=== PATIENT | female | born 1950 | race Caucasian/White ===

== ENCOUNTER 2019-05-02 03:58 | Inpatient (IN) ==
[2019-05-02] MEDS ORDERED: PEPCID ONE (09:29)
[2019-05-02] MEDS ORDERED: COLACE ONE (09:29)
[2019-05-02] MEDS ORDERED: REGLAN ONE (09:29)
[2019-05-02] MEDS ORDERED: KEFZOL 1 GM/D5W 2 GM/100 ML IVPB ONE (09:30)
[2019-05-02] MEDS ORDERED: LYRICA ONE (09:30)
[2019-05-02] MEDS ORDERED: LR 1,000 ML ONE (09:30)
[2019-05-02] MEDS ORDERED: CELEBREX ONE (09:30)
--- NOTE | 2019-05-02 09:47 | EKG Report ---
Test Performed on : 05/02/2019 09:22:21 AM Test Reason : Preop Blood Pressure : / mmHG Vent. Rate : 088 BPM Atrial Rate : 088 BPM P-R Int : 158 ms QRS Dur : 078 ms QT Int : 368 ms P-R-T Axes : 053 046 067 degrees QTc Int : 445 ms Normal sinus rhythm. Normal ECG No previous ECGs available Confirmed by Ericka GOEL, Osvaldo Perez ([id number]) on 05/04/2019 9:43:03 PM
[2019-05-02 09:58] LABS: BASO# 0.02 X1000 (0.0-0.2); BASO% 0.2 % (0.0-0.8); EOS# 0.09 X1000 (0.0-0.7); EOS% 0.9 % (0.0-10.0); HEMATOCRIT 33.7 % (37.0-47.0); HEMOGLOBIN 10.5 g/dL (12.0-16.0); IMM GRAN# 0.02 X1000 (0.0-0.04); IMM GRAN% 0.2 % (0.0-0.5); LYMPH# 1.05 X1000 (1.2-3.4); LYMPH% 10.1 % (20.5-51.1); MCH 30.3 PG (27-31); MCHC 31.2 g/dL (33-37); MCV 97.1 FL (81-99); MONO# 0.84 X1000 (0.11-0.59); MONO% 8.1 % (1.7-9.3); NEUT# 8.39 X1000 (1.4-6.5); NEUT% 80.5 % (42.2-75.2); PLT 255 X1000 (130-400); RBC 3.47 XMIL (4.2-5.4); RDW 12.4 % (11.5-14.5); WBC 10.41 X1000 (4.8-10.8)
[2019-05-02 10:17] LABS: AGAP 9; BUN 25 mg/dL (8-22); CALCIUM 8.4 mg/dL (8.8-10.2); CHLORIDE 99 mmol/L (98-107); COSMO 282; CREATININE 0.8 mg/dL (0.5-0.9); ESTIMATED GFR > 60; GLUCOSE 129 mg/dL (70-104); SODIUM 138 mmol/L (136-145); TCO2 30 mmol/L (25-35)
[2019-05-02 10:27] LABS: INR 1.11; PROTIME 14.4 Seconds (11.0-16.0); PTT 27.3 Seconds (22.3-41.8)
[2019-05-02] MEDS ORDERED: ZOFRAN ONE (10:31)
[2019-05-02] MEDS ORDERED: XYLOCAINE-MPF 2% ONE ×2 (10:31→16:12)
[2019-05-02] MEDS ORDERED: DECADRON ONE (10:31)
[2019-05-02] MEDS ORDERED: ROBINUL ONE ×2 (10:31→13:25)
[2019-05-02] MEDS ORDERED: DIPRIVAN 1% ONE (10:31)
[2019-05-02] MEDS ORDERED: FENTANYL ONE (10:34)
[2019-05-02] MEDS ORDERED: SENSORCAINE 0.25%/EPI 1:200,000 ONE ×3 (11:46→16:13)
[2019-05-02] MEDS ORDERED: TORADOL ONE (11:46)
[2019-05-02] MEDS ORDERED: SODIUM CHLORIDE 0.9% ONE (11:46)
[2019-05-02] MEDS ORDERED: DURAMORPH ONE (11:46)
[2019-05-02] MEDS ORDERED: EXPAREL 1.3% ONE (11:47)
[2019-05-02 12:22] LABS: ALLEN TEST YES; BE 6.1 mmoll (-3.0-3.0); BLOOD TYPE ARTERIAL; HCO3-(ACT) 29.5 mmoll (20.0-26.0); METHB 1.1 % (0.0-1.5); O2(CT) 13.1 mL/dL (15.0-23.0); PCO2(98.6) 50 mmHg (35-45); PO2(98.6) 52 mmHg (60-100); SAMPLE BLOOD; SAO2 91.4 % (95.0-100.0); THB 10.6 g/dL (11.5-17.4); pH(98.6) 7.41 (7.35-7.45)
[2019-05-02 12:23] LABS: MODALITY ROOM AIR; O2HB 87.6 % (95.0-99.0)
[2019-05-02] MEDS ORDERED: KETAMINE ONE (12:46)
[2019-05-02] MEDS ORDERED: OFIRMEV 1000 MG/ISOTONIC SOLN 1,000 MG/100 ML BOTTLE ONE (12:59)
[2019-05-02] MEDS ORDERED: ALBUMIN 25% ONE (14:09)
[2019-05-02] MEDS ORDERED: VANCOMYCIN ONE (14:18)
[2019-05-02] MEDS ORDERED: SODIUM CHLORIDE 0.9% 10 ML ONE (15:36)
[2019-05-02] MEDS ORDERED: EPHEDRINE ONE (15:36)
[2019-05-02] MEDS ORDERED: NORCO-10 PO PRN (16:24)
[2019-05-02] MEDS ORDERED: OXY IR PO PRN ×2 (16:27)
[2019-05-02] MEDS ORDERED: ZOFRAN PO PRN (16:27)
[2019-05-02] MEDS ORDERED: ZOFRAN IV PRN (16:27)
[2019-05-02] MEDS ORDERED: MARCAINE 0.25% PF ONE (16:44)
--- NOTE | 2019-05-02 17:18 | Diag Imaging Result Doc PS360 ---
EXAM: SHOULDER-LEFT - 05/02/2019 HISTORY: Post-Op TECHNIQUE: Portable AP left shoulder one view COMPARISON: 04/28/2019 FINDINGS: There are postsurgical changes of interval left total shoulder prosthesis placement. Alignment appears satisfactory. There are no complicating features identified. There is apparent elevation of left hemidiaphragm noted similar to prior. IMPRESSION: Satisfactory postoperative exam. Electronically signed by Franklyn Chatman 05/02/2019 5:15 PM
[2019-05-02] MEDS ORDERED: NS 1,000 ML ONE (17:34)
[2019-05-02 17:36] LABS: URINE SOURCE CATH
[2019-05-02 17:43] LABS: BILIRUBIN URINE NEGATIVE (NEGATIVE); BLOOD URINE NEGATIVE (NEGATIVE); COLOR YELLOW; GLUCOSE URINE NEGATIVE (NEGATIVE); KETONE URINE TRACE mg/dL (NEGATIVE); LEUKOCYTES URINE LARGE (NEGATIVE); NITRITE URINE NEGATIVE (NEGATIVE); PROTEIN URINE 30 mg/dL (NEGATIVE); SP GRAVITY URINE 1.031; TURBIDITY URINE CLEAR (CLEAR); UROBILINOGEN URINE NORMAL (NORMAL)
[2019-05-02 17:45] LABS: UR EPITHELIAL CELLS <10 /HPF (<10); URINE BACTERIA NEGATIVE /HPF; URINE RBC <10 /HPF (<10); URINE WBC 20-40 /HPF (<10)
--- NOTE | 2019-05-02 18:15 | CONSULTATION ---
DATE OF CONSULTATION: 05/02/2019 HISTORY OF PRESENT ILLNESS: Ms. Cifuentes apparently has a history of gastroesophageal reflux, history of asthma, status post hysterectomy, had a mole removed from her face. She was here for surgery, a left shoulder total surgery apparently and right lower leg fracture. PAST MEDICAL HISTORY: There is not much in the records. ALLERGIES: She has no known drug allergies. HOME MEDICATION: Losartan 50 mg a day, Prilosec 20 mg a day, oxycodone 7.5/325 one q.4-6 hours. IMAGING: I see where she had a left humerus x-ray done on 04/28, badly displaced, badly comminuted humeral head fracture. Every major part of the humeral head is fractured. Distal shaft was intact. Knee x-ray: Displaced transverse patella fracture on the right. OBJECTIVE: General: This is postop. She is still lethargic. Vital signs: She remains afebrile, temperature 97.6 degrees, pulse 96, respirations 12, blood pressure 135/69. Height 5 feet 3 inches. O2 saturation was 96%. HEENT: Pupils are equal and round. Lungs: Clear in all lung alarcon, anterolateral. Cardiovascular: Regular rhythm and rate without murmur or S3. Abdomen: Soft. Skin: Warm and dry. Neck: No distended neck veins. Extremities: No pedal edema. Right knee bandaged and elevated. Left shoulder also bandaged. ASSESSMENT AND PLAN: Left shoulder surgery and right patella. She appears to be stable. Electrolytes and fluid volume appear to be stable. We will watch her blood count. When she is able to give more history may be able to get more expanded past medical history. cc: Toy Lopez MD
[2019-05-02] MEDS: MORPHINE IV PRN ×2 (18:22→20:34)
[2019-05-02] MEDS: LOVENOX SUBQ SCH (18:24)
[2019-05-02] MEDS: TYLENOL PO SCH ×2 (18:24→22:47)
[2019-05-02] MEDS: KEFZOL 2 GM/D5W 2 GM/50 ML IVPB IV SCH (18:28)
[2019-05-02] MEDS: NS 1,000 ML IV SCH (19:52)
[2019-05-02] MEDS: PERIDEX MT SCH (20:22)
[2019-05-02] MEDS: CELEBREX PO SCH (20:22)
[2019-05-02] MEDS: COLACE PO SCH (20:22)
[2019-05-02] MEDS ORDERED: COLACE PO SCH (21:00)
[2019-05-03] MEDS: KEFZOL 2 GM/D5W 2 GM/50 ML IVPB IV SCH (02:10)
[2019-05-03] MEDS: TYLENOL PO SCH ×4 (04:35→22:58)
[2019-05-03] MEDS: PRILOSEC PO SCH (06:26)
[2019-05-03] MEDS ORDERED: QUELICIN (DOSE) ONE (06:36)
[2019-05-03 06:50] LABS: AGAP 9; BUN 19 mg/dL (8-22); CALCIUM 7.7 mg/dL (8.8-10.2); CHLORIDE 101 mmol/L (98-107); COSMO 282; CREATININE 0.7 mg/dL (0.5-0.9); ESTIMATED GFR > 60; GLUCOSE 133 mg/dL (70-104); POTASSIUM 4.9 mmol/L (3.5-5.1); SODIUM 139 mmol/L (136-145); TCO2 29 mmol/L (25-35)
[2019-05-03 06:56] LABS: HEMATOCRIT 27.7 % (37.0-47.0); HEMOGLOBIN 8.2 g/dL (12.0-16.0)
[2019-05-03] MEDS ORDERED: ZEMURON ONE (07:31)
--- NOTE | 2019-05-03 08:10 | ORTHOPAEDICS PROGRESS NOTE ---
DATE: 05/02/2019 This is a postop note. SUBJECTIVE: The patient is seen in the room following surgery. She is doing well. She is reporting pain more in her right knee. States her left shoulder feels pretty good. She ate a little bit of her food, but does not have much of an appetite. No nausea or vomiting. OBJECTIVE: Examination of the left upper extremity reveals a KENNY drain in place with minimal output. Surgical dressing is clean, dry, intact. Minimal swelling around the shoulder. Motor is intact to AIN, PIN, and ulnar nerve distribution. Her posterior deltoid does fire indicating axillary nerve is working. Sensation intact to light touch to median, radial, ulnar, axillary nerves. Radial pulse is palpable and equal bilaterally. Examination of right lower extremity reveals surgical dressing is clean, dry, intact. Knee immobilizer is in place. Thigh and calf were soft and compressible. Motor intact EHL, tibialis anterior, gastrocsoleus complex. Sensation intact to light touch L3-S1. Dorsalis pedis pulse palpable and equal bilaterally. IMAGING: Portable AP view of the left shoulder was reviewed demonstrating good positioning of implants with glenohumeral joint being reduced. ASSESSMENT: A 69-year-old female status post left reverse shoulder arthroplasty and right open reduction and internal fixation of patella fracture. PLAN: 1. Patient will be weightbearing as tolerated on the right lower extremity with her knee immobilizer in place. She is to be nonweightbearing on her left upper extremity. 2. She is to keep her sling intact at all times. While lying in bed, she should have a bump placed behind the elbow. 3. Physical therapy to mobilize in the morning. 4. Ice p.r.n. to the left shoulder and right knee. 5. Ancef x24 hours. 6. Lovenox DVT prophylaxis will start in the morning. 7. Appreciate hospitalist recommendations. 8. Disposition: Pending PT mobilization. Patient will likely be discharged home or to a nursing home facility or inpatient rehab facility on postoperative day 1 or 2. cc: Gianluca Barreto MD
[2019-05-03] MEDS: NS 1,000 ML IV SCH ×2 (08:30→22:57)
--- NOTE | 2019-05-03 08:45 | OPERATIVE NOTE ---
PROCEDURE DATE: 05/02/2019 PREOPERATIVE DIAGNOSES: 1. Left 4-part proximal humerus fracture. 2. Right transverse patella fracture. POSTOPERATIVE DIAGNOSES: 1. Left 4-part proximal humerus fracture. 2. Right transverse patella fracture. PROCEDURE: 1. Left reverse shoulder arthroplasty. 2. Open reduction and internal fixation of right patella fracture. 3. Left biceps tenodesis. SURGEON: Florentin Acosta MD. MACHINE CEMENTER AND FOLDER: BRYSON Baxter whose assistance was necessary for fracture reduction, retraction, and placement of implants. ANESTHESIA: General endotracheal anesthesia. COMPLICATIONS: None. SPECIMENS: None. BLOOD LOSS: 200 mL. DRAINS: One Hemovac drain placed in the left shoulder. IMPLANTS: 1. Exactech Equinoxe reverse shoulder arthroplasty system with a 38 mm glenoid base plate and 38 mm Glenosphere. 2. Exactech Equinoxe humeral fracture stem, left 8.5 mm cemented. 3. A 38 mm Equinoxe humeral liner with a +0 standard liner. 1. Synthes 4-0 cannulated screws x2 with 18-gauge wires for tension band. INDICATIONS FOR PROCEDURE: Ms. Cifuentes is a 69-year-old female who presented to clinic after same- level fall sustaining the above injuries. Given the significant comminution and displacement of her 4-part proximal humerus fracture, the decision was made to proceed with reverse total shoulder arthroplasty. She had a transverse displaced patella fracture as well on the contralateral right knee and we thus proceeded with open reduction and internal fixation of this as well. Risks, benefits, alternative therapies were discussed with the patient regarding surgery. Risks of surgery include, but not limited to, risks of bleeding, infection, damage to nerves and vessels around the area, continued pain following surgery, nonunion, malunion, dislocation, need for revision surgery. Also risks of anesthesia including blood clot, stroke, heart attack, even . Patient understands these risks. All questions were answered. Informed consent was obtained. PROCEDURE IN DETAIL: Ms. Cifuentes was identified by wrist band and greeted in preop holding area on 05/02/2019. Her left upper extremity and right lower extremity were marked in indelible ink per [facility] side and cite protocol. Following this, the patient was transferred back to the operating room for surgery. Upon entering the OR, she was transferred in supine position on to the Skytron table. All bony prominences were well padded. General endotracheal anesthesia was then induced. At this time the Skytron table was raised in the beach chair position. Again, care was taken to make sure all bony prominences were well padded and the patient was well secured. The right lower extremity and the left upper extremity then prepped and draped in routine sterile fashion. Formal time-out was performed confirming correct patient, procedure, operative site, operative side and administration of preoperative antibiotics. Everyone was in agreement. Patient received Ancef prior to incision. We started with the reverse shoulder arthroplasty. A 10 cm longitudinal incision was made running from the coracoid distal in a standard deltopectoral approach. A knife was used to dissect through skin. Bovie cautery was then used to dissect the subcutaneous tissue down to the deltoid fascia. At this time, full-thickness flaps were elevated and Gelpi was used to retract. We then identified and protected the cephalic vein. The fat stripe just distal to the coracoid was identified and the deltopectoral interval was exposed. The cephalic vein was taken laterally. At this time, a Garner retractor was placed and the clavipectoral fascia was incised just lateral to the conjoined tendon. Garner was then placed under the conjoined tendon, carefully retracting these structures medial. We were then looking at out fracture site. Subacromial and subdeltoid release was then performed. Brown deltoid retractor was then placed. Then 0 Vicryl sutures were used to tag the subscapularis and lesser tuberosity fragments as well as the teres minor and infraspinatus that were also attached to some greater tuberosity fragments. The humeral head was then identified and removed from the wound. At this time our humeral shaft fracture had greater exposure. We then began reaming up to a 9 mm reamer which had good chatter. Once this was done, the biceps tendon was identified in the groove. An 0 Vicryl suture was used to tenodese the tendon in the groove just superior to the pectoral insertion. A Bovie cautery was then used to take down the top quarter of the pectoralis tendon which was repaired at the end of the case. We then cut the biceps tendon once our tenodesis was performed. At this time, Rice scissors were used to trace the biceps tendon up the groove into the rotator interval. Our tagging sutures for our tuberosity pieces were then used to expose the glenoid. A Hohmann retractor was placed over the superior glenoid. Rice scissors were then used to identify the interval between anterior capsule and subscapularis. This anterior capsule was then released. This time, Batman retractor was placed in the anterior glenoid and Bovie cautery was used to carefully dissect around the periphery of the glenoid circumferentially to help with our exposure. Care was taken to watch for an axillary nerve and then any muscle contraction of the deltoid, especially around the inferior glenoid. Once we had our exposure, posterior Montes retractor was placed around the glenoid. We then placed our trial glenoid base plate, which was found to be a 38 mm base plate. A K-wire was driven through the center of the hole and the cannulated bow tie reamers were then used to ream the glenoid. Once this was done, our central hole was drilled and a 38 mm standard reverse base plate was opened. Bone graft was packed into the core and it was then impacted in position in routine fashion. Next, we used drill and depth gauge to place 5 screws around the periphery. We had excellent bite with the screws and locking caps were placed. A 38 mm standard Glenosphere was then placed and impacted in position and locking screw was placed. Following this, our posterior glenoid retractor was removed. We then turned our attention to the humerus. The humeral shaft was again brought into the wound and an 8.5 mm fracture stem trial was placed. We placed this at about 25 degrees of retroversion using the forearm as a guide. Once this was placed, our trial base plate with a trial standard liner were then placed and the shoulder was reduced. We had good tensioning of the conjoined tendon and deltoid when this was done. Patient had 90 degrees of motion with the elbow by her side and external rotation. She had good forward flexion and abduction as well. At this time, the shoulder was again dislocated. Trial components were removed and a cement restrictor plate was placed. The humeral canal was copiously irrigated. Dry lap was then placed to keep it dry. Two packs of the Gencore Systemsuy quick set cement were then opened and mixed on the back table. Next, 1 g vancomycin was carefully mixed in with this as well. Once our cement was adequately mixed, it was then injected down into the canal. Our final 8.5 mm humeral fracture stem was then placed and held in correct version while cement hardened. Once this was done, we then trialed off of our standard base plate with a +0 liner. Again, the shoulder was found to have a great range of motion with no impingement and good tensioning. We thus opened a standard 38 mm liner, impacted this in position and then reduced the shoulder. At this time, the shoulder was copiously irrigated with normal saline. A #2 FiberWire suture was used to repair our subscapularis as well as the posterior cuff teres minor and infraspinatus around the fin on the fracture stem. We still had good motion even after this repair. Once this was done, our Exparel concoction was then injected deep around the capsule, rotator cuff tendon, pectoralis and deltoid muscles. A 10-Tajik Hemovac drain was then placed. At this time, we then proceeded with repair of our pectoral major tendon insertion with a #1 Vicryl stitch. The interval was then loosely closed with 0 Vicryl suture. 2-0 Vicryl suture was then used for subcutaneous tissue closure followed by 4-0 Monocryl for skin closure. Dermabond Prineo dressing was then placed. At this time, we turned our attention to the patella. Esmarch was used to exsanguinate the right lower extremity and tourniquet was elevated to 350 mmHg. Total tourniquet time was about 45 minutes. Once this was done, a standard 6 cm longitudinal incision was made over the anterior aspect of the patella at the midline. Knife used to dissect through skin and subcutaneous fat down to the paratenon. The paratenon was then split and a plane was developed on each side of the patella. Once a good exposure, fluoroscopy was brought in to ensure placement of our screws. The guidewires for 4-0 cannulated screws were then placed in antegrade fashion into the proximal fracture fragment. Once this was done, we then looked on the lateral to reduce the fracture. On x-ray, she appeared to have some step-off of the fracture site so a small 2 cm arthrotomy was made on the medial aspect of the patella and my finger was placed to feel across the fracture site. The patient had near- anatomic reduction across the fracture site with a very minimal step-off on the lateral facet. This is likely secondary to impaction of the subchondral bone. Once we were satisfied with our reduction, our 2 pins were driven across the fracture site in antegrade fashion. A 4-0 cannulated drill was then used to drill the proximal part of the fracture fragment. A depth gauge used to measure the screws and two 4-0 cannulated partially threaded screws were then placed in routine fashion. Once these were in place and had good purchase, we then took an 18-gauge stainless steel cable and ran it through the cannulated screws in a figure of 8 tension band fashion. Cable was then tightened using the needle tilt tray driver and wires were cut and buried in routine fashion. At this time final AP and lateral x-rays were taken, again confirming good reduction and compression across the fracture site. The knee was copiously irrigated with normal saline. 0 Vicryl suture was used for closure of arthrotomy site. 0 Vicryl suture was then used for closure of our paratenon. At this time, 2-0 Vicryl sutures used for subcutaneous tissue closure and 4-0 Monocryl for skin closure. Dermabond was then placed on the skin. At this time, 20 mL of 0.25% Marcaine with epinephrine was injected around the incision. The wound was then dressed with 4 x 4, ABD, sterile Webril, and an John wrap from the foot up to the thigh. At this time, all sterile drapes were taken down. A knee immobilizer was placed. Tourniquet was deflated. Again, total tourniquet time was about 45 minutes. The patient was then extubated, transferred over to the hospital stretcher and taken to recovery in stable condition. There were no acute complications during the procedure. All sponge and sharp counts were correct at the conclusion of the procedure. cc: MD RUDOLPH Baez
[2019-05-03] MEDS ORDERED: CELEBREX PO SCH (09:00)
[2019-05-03] MEDS ORDERED: COZAAR PO SCH (09:00)
[2019-05-03] MEDS: PERIDEX MT SCH ×2 (09:55→22:58)
[2019-05-03] MEDS: CELEBREX PO SCH ×2 (09:56→22:58)
[2019-05-03] MEDS: ASPIRIN PO SCH (09:56)
[2019-05-03] MEDS: COZAAR PO SCH (09:56)
[2019-05-03] MEDS: COLACE PO SCH ×2 (09:57→22:58)
--- NOTE | 2019-05-03 14:25 | ORTHOPAEDICS PROGRESS NOTE ---
DATE: 05/03/2019 SUBJECTIVE: No acute events overnight. Patient states she slept well. Pain is well controlled. She is hurting more on the right knee than she is in the left shoulder. She is tolerating a diet. No nausea or vomiting. OBJECTIVE: Hematocrit is 28. A KENNY drain output minimal.Left upper extremity: Examination of the upper extremity shows dressing to be clean, dry, intact. KENNY drain in place with minimal output and good seal. Motor is intact; AIN, PIN, ulnar, axillary nerve distribution. Sensation intact to light touch median, radial, ulnar, and axillary nerves. Radial pulse palpable. Arm is soft and compressible. Right lower extremity: Examination of right lower extremity shows surgical dressing and John wrap to be clean, dry, intact. Motor is intact; EHL, tibialis anterior, gastrocsoleus complex. Sensation intact to light touch L3-S1. Dorsalis pedis pulse palpable. Knee immobilizer in place. ASSESSMENT: A 69-year-old female status post left reverse shoulder arthroplasty and right open reduction internal fixation of patella fracture postoperative day 1. PLAN: 1. We will plan on physical therapy to mobilize. Nonweightbearing, left upper extremity. Weightbearing as tolerated, right lower extremity in a knee immobilizer. 2. Discontinue KENNY drain. 3. Continue Ancef for 24 hours total postop. 4. Case Management consulted for placement. 5. Appreciate hospitalist recommendations. DISPOSITION: The patient will likely plan on being discharged to a retirement facility following this due to her two-extremity injury. We will follow up on physical therapy and case management recommendations for this. cc: Gianluca Barreto MD
[2019-05-03] MEDS: MORPHINE IV PRN ×4 (14:45→23:51)
[2019-05-03] MEDS: LOVENOX SUBQ SCH (17:06)
--- NOTE | 2019-05-03 17:27 | PROGRESS NOTE ---
DATE: 05/03/2019 SUBJECTIVE: Today Ms. Cifuentes refers to be doing fairly okay, she says physical therapy came to work with her. She was able to make some few steps but she was just kind of shaking. OBJECTIVE: Vitals: Blood pressure 127/47, pulse of 85, respiration is 19, temperature 98.1 degrees. General: Ms. Cifuentes 69-year-old elderly female she is in bed no distress, mucosa is pink and moist. Anicteric, acyanotic. Neck: Supple. Chest: Clear to auscultation. Cardiovascular: Regular rate and rhythm. Abdomen: Soft. Extremities: No pedal edema. The right lower extremity is in orthopedic cast. The left upper extremity is also in a sling. Sanchez catheter is in place. Patient's hemoglobin is 8.2. Chemistry is completely normal. CURRENT MEDICATIONS: Have all been reviewed and no changes. ASSESSMENT: 1. Status post mechanical fall resulting into a left proximal humerus fracture and a right transverse patella fracture. Patient has undergone a left reverse shoulder arthroplasty and an open reduction and internal fixation of the right patellar fracture. This was done yesterday by Dr. Acosta, today day 1 postop. Patient has been evaluated by Physical Therapy. She seems to be doing fairly okay. We would discontinue the Sanchez catheter tomorrow and encourage more physical therapy and hopeful might be able to get her home tomorrow or to a SNF. 2. Hypertension controlled. cc: Gianluca Barreto MD MTDD
[2019-05-04] MEDS: TYLENOL PO SCH ×5 (05:19→20:51)
[2019-05-04] MEDS: PRILOSEC PO SCH ×2 (06:50→06:51)
[2019-05-04 07:13] LABS: HEMATOCRIT 26.6 % (37.0-47.0); HEMOGLOBIN 7.8 g/dL (12.0-16.0)
[2019-05-04 09:02] LABS: IRON SATURATION 14 %; TIBC 199 ug/dL; TOTAL IRON 28 ug/dL (49-151); UNBOUND IRON 171 ug/dL (112-346)
[2019-05-04] MEDS: COZAAR PO SCH (09:08)
[2019-05-04] MEDS: COLACE PO SCH ×2 (09:09→20:51)
[2019-05-04] MEDS: PERIDEX MT SCH ×2 (09:09→20:51)
[2019-05-04] MEDS: CELEBREX PO SCH ×2 (09:09→20:51)
[2019-05-04] MEDS: ASPIRIN PO SCH (09:09)
[2019-05-04 11:08] LABS: FERRITIN 87 ng/mL (13-150)
--- NOTE | 2019-05-04 11:21 | ORTHOPAEDICS PROGRESS NOTE ---
DATE: 05/04/2019 SUBJECTIVE: No acute events overnight. The patient is doing well. She stood up and took a couple of steps with Physical Therapy yesterday. She reports some pain in her right knee. States her left shoulder is doing okay. She has been tolerating a diet. OBJECTIVE: Hematocrit is 26. KENNY drain minimal output. Examination of the left upper extremity shows surgical dressing clean, dry, and intact. The patient has minimal swelling in her arm, forearm, wrist, and hand. Motor intact, AIN, PIN, and ulnar axillary nerves. Sensation intact to light touch, median, radial, ulnar, and axillary nerves. Radial pulse is palpable. KENNY drain is in place for now. Examination of the right lower extremity reveals surgical dressing to be clean, dry, and intact with knee immobilizer in place. Motor is intact, EHL, tibialis anterior, gastrocsoleus complex. Sensation intact to light touch, L3-S1. Dorsalis pedis pulse is palpable. Thigh and calf are soft and compressible. ASSESSMENT: A 69-year-old female, status post left reverse shoulder arthroplasty and open reduction internal fixation of right patella, postoperative day 2. PLAN: 1. The patient can continue weightbearing as tolerated, right lower extremity in the knee immobilizer. Nonweightbearing, left upper extremity. Physical Therapy to mobilize. 2. Discontinue KENNY drain. 3. Discontinue Sanchez catheter. 4. Appreciate hospitalist recommendations. 5. Acute blood loss anemia. Hematocrit is 26. Her vital signs are currently stable. If she becomes orthostatic when she is up ambulating with therapy, we may consider giving 1 unit of blood. However, will hold off on that for now. 6. Disposition. Case Management has talked to the patient regarding placement. I think she likely would benefit from inpatient rehab facility upon discharge. Will talk with her daughter today, and begin getting this set up. cc: Gianluca Barreto MD
[2019-05-04] MEDS: MORPHINE IV PRN (12:07)
[2019-05-04] MEDS: NS 1,000 ML IV SCH (12:09)
--- NOTE | 2019-05-04 14:29 | Diag Imaging Result Doc PS360 ---
EXAM: CHEST-1 VIEW HISTORY: REHAB TECHNIQUE: Chest single view COMPARISON: None. FINDINGS: The lungs are well expanded although the left hemidiaphragm is elevated. The heart is mildly enlarged. The vessels are not distended. There are no infiltrates. No effusion identified. IMPRESSION: Cardiomegaly Electronically signed by Jerald Boston 05/04/2019 2:27 PM
--- NOTE | 2019-05-04 15:19 | PROGRESS NOTE ---
DATE: 05/04/2019 SUBJECTIVE: Today, Ms. Cifuentes refers to be feeling slightly better. She was able to move with physical therapy. She did about 30 feet as per physical therapy report. She is still trying to make a decision between wanting to go home or going to rehab. OBJECTIVE: Vital Signs: Blood pressure 162/49, pulse of 80, respirations 16, and temperature 98.4 degrees. General: Ms. Cifuentes is a 69-year-old female. She is in bed in no distress. Mucosa is pink and moist. Anicteric. Acyanotic. Neck: Supple. Chest: Clear to auscultation. No crepitations. No rhonchi. Cardiovascular: Regular rate and rhythm. Abdomen: Soft and nontender. Bowel sounds present. Extremities: No pedal edema. The right lower extremity is in orthopedic cast. The left upper extremity is in a sling. DRUG DEPARTMENT WORKER: Patient is awake, alert, and follows commands. LABORATORY DATA: Hemoglobin was down to 7.8 today. Chemistry did show a ferritin level of 87. The patient's vitamin B12 is 165 and folate is 8.3 all of which are remarkably low. ASSESSMENT: 1. Status post mechanical fall resulting into a left proximal humerus fracture and a right transverse patella fracture. Patient underwent orthopedic intervention. Today is day 2 postop. She seems to be doing well with physical therapy today. She did 30 feet with minimum assist. 2. Hypertension controlled. 3. Normocytic anemia. Hemoglobin has dropped to about 7.8. I think part of it reflects dilution and blood loss during surgery. We are going to continue to trend this. 4. Mineral and vitamin deficiencies (iron deficiency, B12 and folate deficiencies) will replace all these. 5. Constipation. I understand Ms. Cifuentes has not had any bowel movement since the hospital course. We are going to start her on MiraLAX to help with her bowel movement. We also anticipate that as she becomes more ambulatory, that will also help with the gut mobilization. 6. Disposition: I think after our discussion today with Ms Cifuentes, she is leaning more towards going to rehab to have better chances of healing and learning how to walk again after the orthopedic intervention. We will follow up with her tomorrow morning and then go from there. cc: Gianluca Barreto MD
[2019-05-04] MEDS: VENOFER 200 MG in NS 100 ML IV SCH (15:54)
[2019-05-04] MEDS: LOVENOX SUBQ SCH (15:55)
[2019-05-04] MEDS: FOLIC ACID PO SCH ×2 (15:55→20:52)
[2019-05-04] MEDS: MIRALAX PO SCH (15:55)
[2019-05-05] MEDS: TYLENOL PO SCH ×4 (01:39→18:43)
[2019-05-05 06:15] LABS: HEMATOCRIT 28.6 % (37.0-47.0); HEMOGLOBIN 8.5 g/dL (12.0-16.0)
[2019-05-05] MEDS: PRILOSEC PO SCH (06:24)
[2019-05-05] MEDS: ASPIRIN PO SCH (09:23)
[2019-05-05] MEDS: MIRALAX PO SCH (09:23)
[2019-05-05] MEDS: COZAAR PO SCH (09:24)
[2019-05-05] MEDS: CELEBREX PO SCH ×2 (09:24→22:23)
[2019-05-05] MEDS: FOLIC ACID PO SCH ×2 (09:24→22:23)
[2019-05-05] MEDS: COLACE PO SCH ×2 (09:25→22:23)
[2019-05-05] MEDS: PERIDEX MT SCH ×2 (09:25→22:23)
[2019-05-05] MEDS: VENOFER 200 MG in NS 100 ML IV SCH (12:23)
[2019-05-05] MEDS: CYANOCOBALAMIN IM SCH (12:24)
--- NOTE | 2019-05-05 15:50 | ORTHOPAEDICS PROGRESS NOTE ---
DATE: 05/05/2019 SUBJECTIVE: The patient is doing well. She had some anxiety and panic attack overnight, stating she felt like the room was closing in on her. She says she has never had this happen before. She denies any chest pain or issues at this time when I saw her in the morning. She is tolerating her diet well. She did walk about 30 feet with physical therapy yesterday. She talked with her daughter and behavioral health case manager and decided to go to an inpatient rehab facility for short-term upon discharge from the hospital. I think this is a good idea. Overall she is doing well on pain control. OBJECTIVE: Hematocrit stable at 29. Left upper extremity, examination of left shoulder shows dressing clean, dry, and intact. Nontender to palpation over shoulder and arm. Neurovascularly intact. Examination of the right leg shows surgical dressing clean, dry, and intact with a knee immobilizer in place. Thigh and calf soft and compressible. Neurovascular intact. ASSESSMENT: A 69-year-old female status post left reverse shoulder arthroplasty and ORIF of right patella. Postoperative day 3. PLAN: 1. Weightbear as tolerated right lower extremity. Nonweightbearing left upper extremity. Sling at all times with left upper extremity. Physical therapy to mobilize with assistive device. 2. Lovenox. DVT prophylaxis. We will send patient home on aspirin upon discharge for DVT prophylaxis, 325 mg p.o. daily x4 weeks. 3. Ice to operative sites as needed. 4. Appreciate hospitalist recommendations. 5. Disposition. I will plan on discharging the patient to rehab facility when bed is available. cc: Gianluca Barreto MD
[2019-05-05] MEDS: LOVENOX SUBQ SCH (18:43)
[2019-05-06 06:54] LABS: HEMATOCRIT 30.9 % (37.0-47.0); HEMOGLOBIN 9.2 g/dL (12.0-16.0)
[2019-05-06] MEDS: TYLENOL PO SCH ×2 (07:23→12:04)
[2019-05-06] MEDS: FOLIC ACID PO SCH (09:40)
[2019-05-06] MEDS: ASPIRIN PO SCH (09:41)
[2019-05-06] MEDS: COZAAR PO SCH (09:41)
[2019-05-06] MEDS: COLACE PO SCH (09:41)
[2019-05-06] MEDS: VENOFER 200 MG in NS 100 ML IV SCH (09:42)
[2019-05-06] MEDS: CELEBREX PO SCH (09:42)
[2019-05-06] MEDS: MIRALAX PO SCH (09:42)
[2019-05-06] MEDS: PERIDEX MT SCH (09:45)
[2019-05-06] MEDS: CYANOCOBALAMIN IM SCH (09:46)
--- NOTE | 2019-05-06 11:22 | DISCHARGE SUMMARY ---
DATE: 05/06/2019 DISPOSITION: [facility] FOLLOW-UP: 1. Dr. Cutler. 2. Dr. Acosta. CONSULTATION DURING THIS ADMISSION: Orthopedic was consulted. The patient was seen by Dr. Acosta. INVASIVE PROCEDURES DONE DURING THIS ADMISSION: 1. Left reverse shoulder arthroplasty, open reduction and internal fixation of right patella fracture. 2. Left biceps tenodesis was all done by Dr. Acosta on 05/02/2016. IMAGING STUDIES OF SIGNIFICANCE: 1. A left shoulder x-ray postoperatively did show satisfactory postoperative exams. 2. A chest x-ray was unremarkable. ADMISSION DIAGNOSIS: Left shoulder surgery and right patella. DIAGNOSES AT THE TIME OF DISCHARGE: 1. Status post mechanical fall resulting into a left proximal humerus fracture and a right transverse patella fracture. 2. Hypertension. 3. Normocytic anemia. 4. Multi mineral and vitamin deficiencies (iron, B 12 and folate) were all replaced. 5. Constipation, improved. PRESENTING COMPLAINT: Status post mechanical fall. HISTORY OF PRESENTING COMPLAINT: Ms. Cifuentes is a 69-year-old female, who has multiple comorbidities including hypertension, GERD, asthma, who was actually admitted by the orthopedic team because of a left shoulder injury and a right patellar fracture. We were consulted for medical management of her other comorbidities. Ms. Cifuentes successfully underwent orthopedic intervention. Please refer to the details of the surgical notes in the chart. Postoperatively, she continues to improve. She was able to participate on a daily basis with physical therapy. After yesterday, she was able to do 160 feet with minimum assistance. She was weightbearing as tolerated. From Orthopedics note, it appears that they are comfortable for her to go to the rehab. From medical standpoint, all her other comorbidities are controlled. We think she is okay to be discharged. During the hospital course, Ms. Cifuentes was found to be iron deficient, B 12 and folate deficient. All of these were initially replaced with IV formulations. These have been transitioned to oral preparations, and patient will follow up with her primary care doctor after discharge. This morning, Michelle refers to be doing well. Her current vitals: Blood pressure is 161/45, pulse is 90, respiration is 16, temperature is 98.4 degrees. She is saturating about 94% on room air. We think she is clinically stable for discharge. Other discharge instructions discussed with her, and she voices understanding. TIME SPENT FOR DISCHARGE: 36 minutes. cc: MD Florentin Vyas MD Raphael K. Quansah, MD
[2019-05-06] MEDS: PRILOSEC PO SCH (12:04)
[2019-05-06 15:26] VITALS: BP 178/52
== END 2019-05-06 15:38 | DRG 483 ==
LOC: SURHOLD 03:58 → 4N 13:58
PROVIDERS: ADMIT Internal Medicine; ATTEND Orthopaedic Surgery Sports Medicine

== ENCOUNTER 2019-06-13 14:30 | Inpatient (IN) ==
[~2019-06-13 14:30] MED LIST: LOVENOX SUBQ SCH
[2019-06-13] MEDS ORDERED: KEFZOL 1 GM/D5W 0 GM/0 ML IVPB ONE (15:36)
[2019-06-13] MEDS ORDERED: LR 1,000 ML ONE (15:36)
[2019-06-13] MEDS ORDERED: PEPCID ONE (16:03)
[2019-06-13] MEDS ORDERED: REGLAN ONE (16:03)
[2019-06-13] MEDS ORDERED: XYLOCAINE-MPF 2% ONE (16:53)
[2019-06-13] MEDS ORDERED: DIPRIVAN 1% ONE (16:53)
[2019-06-13] MEDS ORDERED: ZOFRAN ONE (18:23)
[2019-06-13] MEDS ORDERED: DECADRON ONE (18:23)
[2019-06-13] MEDS ORDERED: KEFZOL 1 GM/D5W 1 GM/50 ML IVPB ONE ×2 (18:27→18:28)
[2019-06-13] MEDS ORDERED: FENTANYL ONE (18:33)
[2019-06-13] MEDS ORDERED: VANCOMYCIN ONE (18:40)
[2019-06-13] MEDS ORDERED: LR 500 ML ONE (19:26)
[2019-06-13] MEDS: DILAUDID ONE ×2 (19:28→19:31)
[2019-06-13] MEDS ORDERED: OXY IR PO PRN (19:51)
[2019-06-13] MEDS ORDERED: MILK OF MAGNESIA PO PRN (19:51)
[2019-06-13] MEDS ORDERED: HALDOL IV PRN (19:51)
[2019-06-13] MEDS ORDERED: MORPHINE IV PRN ×2 (19:51→21:00)
[2019-06-13] MEDS ORDERED: ZOFRAN IV PRN (19:51)
[2019-06-13] MEDS ORDERED: COLACE PO SCH (21:00)
[2019-06-13] MEDS ORDERED: DOXYCYCLINE PO SCH (21:00)
--- NOTE | 2019-06-13 23:40 | OPERATIVE NOTE ---
PROCEDURE DATE: 06/13/2019 PREOPERATIVE DIAGNOSIS: Right knee surgical site infection status post open reduction, internal fixation right patella 6 weeks ago. POSTOPERATIVE DIAGNOSIS: Right knee surgical site infection status post open reduction, internal fixation right patella 6 weeks ago. PROCEDURE: Debridement and irrigation of right knee surgical site infection skin, fascia, bone down into the joint. SURGEON: Dr. Florentin Acosta. ASSISTANTS: None. ANESTHESIA: General endotracheal anesthesia. COMPLICATIONS: None. SPECIMENS: Cultures were obtained both deep in the wound as well as on the superficial aspect of the wound. FINDINGS: The patient was found to have about a 1.5 cm circumferential necrotic area of tissue overlying her patellar retinaculum. Infection found to track deep through the patella fracture site into the joint. Hardware was in place and stable. However, there was some micro motion of the fracture site. The superficial wound as well as knee joint were washed out with 9 L of normal saline. The wound was closed under tension. DRAINS: One Hemovac drain was placed in the superficial aspect of the right knee. INDICATIONS FOR PROCEDURE: Mr. Cifuentes is a 69-year-old lady previously underwent left reverse shoulder arthroplasty and ORIF of right transverse patella fracture on 05/02/2019. She has been doing well with the shoulder and was doing well with patella until she developed a draining sinus 4 days ago. She was placed on antibiotics and presented to clinic today with a quarter-sized circumferential area of dehiscence on the distal aspect of the incision. Given these findings, the patient was booked for surgery from clinic to be done later in the evening to undergo debridement, irrigation and closure of the wound. Risks and benefits alternative therapy were discussed the patient and family regarding surgery. Risks of surgery include but not limited to risks of bleeding, infection, damage to nerves and vessels around the area, continued pain following surgery, need for revision surgery. Also risk anesthesia including blood clot, stroke, heart attack, even . Patient understands these risks. All questions were answered. Informed consent was obtained. PROCEDURE IN DETAIL: The patient was identified by wristband and greeted in preop holding area on 06/13/2019. Her right lower extremity which was the operative site was marked with indelible ink per [facility]OS sign and site protocol. Following this patient was transferred back to the operating room for surgery. Upon in the OR she was transferred in supine position on the Skytron table. All bony prominences padded. General endotracheal anesthesia was then induced. At this time the right lower extremity was prepped and draped in routine sterile fashion. Formal time-out was performed confirming correct patient, procedure, operative site, operative side, administration of preop antibiotics. Everyone in agreement. Antibiotics were held until cultures were obtained. Right lower extremity was gravity exsanguinated and tourniquet was elevated to 300 mmHg. Total tourniquet time was 50 minutes. Once this was done 10 blade knife was used to make incision through patient's old incision through the distal 5 cm of her old incision site. Knife was used dissect through skin, subcutaneous tissue. Knife was then used to dissect the necrotic looking skin edges most noted on the lateral aspect of the incision. Once this was done patient was found to have fat necrosis and soupy necrotic looking subcutaneous tissue. Three sets of cultures were then obtained from this area as well as probing into the transverse patella fracture site. Stevinson was placed into the fracture site and found to probe all the way down to the femoral condyle. The patient had minimal joint effusion however given the fact it tracked deep into joint, decision was made to perform a small arthrotomy to allow debridement and irrigation of the joint as well. Once this was done the knee was copiously irrigated with 9 L of normal saline. After this the leg was re-prepped, new down sheet was placed and gloves were changed. We then began inspecting the tissue. Please note further debridement curette and hemostat were used to mechanically debride the wound site. After debridement and irrigation was complete we then palpated the fracture site and screws as well as the cable were in place. However there was a small amount of micro motion palpable between the 2 fracture pieces. At this time decision was made to proceed with closure of the wound as she is likely will need a stage procedure for definitive fixation versus hardware removal fracture. A 10-Romansh Hemovac drain was placed in routine fashion. We then placed 1 g of vanc powder superficially in the wound. At this time 0 PDS suture was used to close our arthrotomy site followed by 2-0 PDS suture for subcutaneous tissue closure and 3-0 nylon for skin closure. The wound was closed however was under tension due to the excised tissue from the wound dehiscence and infection. Once the wound was closed it was then dressed with Xeroform, 4 x 4s, ABD, sterile Webril. She was then placed into a loosely wrapped flex John going from her foot up to her thigh. The patient was then placed back into a knee immobilizer locked in extension. Tourniquet was released. Total tourniquet time again was 50 minutes. At this time patient was extubated, transferred to her hospital stretcher, taken to recovery in stable condition. There were no acute complications during the procedure. All sponge and sharp counts were correct at conclusion of procedure. [facility]
[2019-06-13] MEDS: FOLIC ACID PO SCH (23:49)
[2019-06-13] MEDS: COLACE PO SCH (23:50)
[2019-06-13] MEDS: CELEBREX PO SCH (23:51)
[2019-06-13] MEDS: FERROUS SULFATE PO SCH (23:51)
[2019-06-13] MEDS: TYLENOL PO SCH (23:54)
[2019-06-13] MEDS: OXY IR PO PRN (23:54)
[2019-06-13] MEDS: ZOSYN 3.375 GM in NS 50 ML IV SCH (23:55)
[2019-06-14 04:41] LABS: URINE SOURCE CLEAN CATCH
[2019-06-14 05:06] LABS: BILIRUBIN URINE NEGATIVE (NEGATIVE); BLOOD URINE NEGATIVE (NEGATIVE); COLOR YELLOW; GLUCOSE URINE NEGATIVE (NEGATIVE); KETONE URINE NEGATIVE (NEGATIVE); LEUKOCYTES URINE MODERATE (NEGATIVE); NITRITE URINE NEGATIVE (NEGATIVE); PH URINE 6.5; PROTEIN URINE NEGATIVE (NEGATIVE); SP GRAVITY URINE 1.014; TURBIDITY URINE CLEAR (CLEAR); UROBILINOGEN URINE NORMAL (NORMAL)
[2019-06-14 05:07] LABS: UR EPITHELIAL CELLS <10 /HPF (<10); URINE BACTERIA NEGATIVE /HPF; URINE RBC <10 /HPF (<10)
[2019-06-14] MEDS: OXY IR PO PRN ×3 (05:26→21:10)
[2019-06-14] MEDS: VANCOMYCIN 1 GM/NS 1 GM/250 ML IVPB IV SCH ×2 (05:27→07:27)
[2019-06-14] MEDS: LOVENOX SUBQ SCH (05:27)
[2019-06-14] MEDS: ZOSYN 3.375 GM in NS 50 ML IV SCH ×2 (05:27→11:34)
[2019-06-14 06:06] LABS: HEMATOCRIT 37.7 % (37.0-47.0); HEMOGLOBIN 11.1 g/dL (12.0-16.0)
[2019-06-14 06:30] LABS: AGAP 6; BUN 9 mg/dL (8-22); CALCIUM 9.1 mg/dL (8.8-10.2); CHLORIDE 98 mmol/L (98-107); COSMO 277; CREATININE 0.7 mg/dL (0.5-0.9); ESTIMATED GFR > 60; GLUCOSE 138 mg/dL (70-104); POTASSIUM 4.9 mmol/L (3.5-5.1); SODIUM 138 mmol/L (136-145); TCO2 34 mmol/L (25-35)
[2019-06-14] MEDS ORDERED: VANCOMYCIN IV PER PHARMACY MISC SCH (08:15)
[2019-06-14] MEDS: PERIDEX MT SCH ×2 (08:43→21:09)
[2019-06-14] MEDS: CELEBREX PO SCH ×2 (08:43→21:12)
[2019-06-14] MEDS: PRILOSEC PO SCH (08:44)
[2019-06-14] MEDS: VITAMIN B-12 PO SCH (08:44)
[2019-06-14] MEDS: MIRALAX PO SCH (08:44)
[2019-06-14] MEDS: COZAAR PO SCH (08:45)
[2019-06-14] MEDS: COLACE PO SCH ×2 (08:45→21:10)
[2019-06-14] MEDS: FOLIC ACID PO SCH ×2 (08:46→21:10)
[2019-06-14] MEDS: FERROUS SULFATE PO SCH ×2 (08:46→21:11)
[2019-06-14] MEDS: TYLENOL PO SCH ×2 (08:46→16:20)
[2019-06-14] MEDS ORDERED: FERROUS SULFATE PO SCH (09:00)
--- NOTE | 2019-06-14 10:15 | ORTHOPAEDICS PROGRESS NOTE ---
DATE: 06/14/2019 SUBJECTIVE: No acute events overnight. Patient did well postoperatively. Her pain is controlled. She is tolerating a diet. LABS: Hematocrit 38, white count is 11. OBJECTIVE: Extremities: Examination of right lower extremity shows surgical dressing clean, dry, intact. Drains in place with minimal output. Motor intact: EHL, tibialis anterior, gastrocsoleus complex. Thigh and calf soft and compressible. Knee immobilizer is on and locked in extension. ASSESSMENT: A 69-year-old female status post debridement and irrigation of right knee infected hardware. Postoperative day 1. PLAN: 1. Patient can be weightbearing as tolerated, right lower extremity with her brace locked in extension. 2. Continue vancomycin and Zosyn for broad-spectrum antibiotics. Infectious Disease consulted for antibiotic recommendations. Cultures are pending. 3. Lovenox DVT prophylaxis. 4. Internal Medicine consulted for medical management. Appreciate recommendations. 5. I talked to the patient about 2 options regarding definitive treatment of this. I think we can either continue in treating this non operative with 6 weeks IV antibiotics and then plan to do a staged procedure to go in to remove hardware with possible definitive fixation versus partial patellectomy at that time. The other option will be to go ahead back to the operating room tomorrow for repeat debridement and hardware removal. We could use some sutures to temporize the fracture and allow antibiotics to do their job for 6 weeks. At that time, we then plan on doing a staged procedure for partial patellectomy versus fixation of the fracture. The patient is going to talk to her family about this. I will also talk with the family when they are available later on today. cc: Corey Cummings MD
[2019-06-14] MEDS ORDERED: VANCOMYCIN 1 GM/NS 1 GM/250 ML IVPB IV ONE (12:00)
--- NOTE | 2019-06-14 12:17 | CONSULTATION ---
DATE OF CONSULTATION: 06/14/2019 CONSULTING PHYSICIAN: Dr. Florentin Acosta. REASON FOR CONSULTATION: Medical management. HISTORY OF PRESENT ILLNESS: This is a 69-year-old female with a prior history of normocytic anemia, hypertension, vitamin B 12 and folate deficiencies, as well as gastroesophageal reflux disease. She underwent right knee surgical site debridement and irrigation of skin infection fascia bone down to the joint. She is status post open reduction internal fixation of the right patella 6 weeks ago. We have been consulted for medical management. PAST MEDICAL HISTORY: Gastroesophageal reflux disease, vitamin B 12, folate, iron deficiencies, normocytic anemia, hypertension. PAST SURGICAL HISTORY: 1. Open reduction internal fixation, right patella 05/02/2019. 2. Debridement and irrigation of right knee surgical site down to the joint 06/13/2019. 3. Hysterectomy. ALLERGIES: No known drug allergies. HOME MEDICATIONS: Losartan, Prilosec, oxycodone. REVIEW OF SYSTEMS: Discussed with patient pertinent positives, hysterectomy. LABS: Hemoglobin is 11.1, hematocrit 37.7. Sodium 138, potassium 4.9. BUN 9, creatinine 0.7, glucose 138. Urinalysis is clean-catch, reveals 10 to 20 microscopic white blood cells. Urine culture is pending. Right knee cultures are pending. ASSESSMENT AND PLAN: 1. Hypertension. Continue her home medications. 2. Normocytic anemia. trend her labs. 3. Mineral and vitamin deficiencies, iron deficiency, B 12 and folate deficiencies. home medications. 4. Status post debridement and irrigation of right knee skin fascia bone down to the joint. was started on vancomycin and Zosyn per Orthopedics. will continue, although we will change vancomycin to be dosed per pharmacy. Repeat a complete blood count and comprehensive metabolic panel in the morning. 5. For deep vein thrombosis prophylaxis, continue Lovenox. 6. For gastrointestinal prophylaxis, continue Prilosec. Thank you for allowing us to participate in this patient's care. We will follow along. Dictated by BRYSON Srinivasan for Corey Cummings MD cc: BRYSON Srinivasan MD [facility]
[2019-06-14] MEDS: MAXIPIME 2 GM in NS 100 ML IV SCH (13:32)
--- NOTE | 2019-06-14 13:35 | INFECTIOUS DISEASE CONSULT REP ---
DATE: 06/14/2019 CONCLUSION: Patient has a right knee surgical site infection, status post open reduction and internal fixation of the right patella 6 weeks ago. The infection involves the femur also. RECOMMENDATIONS: I have discontinued vancomycin and Zosyn and instead have placed the patient on daptomycin and cefepime pending culture results. Some of the side effects of the antibiotics, including rash, diarrhea and muscle toxicity, have been explained to the patient who agrees with treatment. DISCUSSION: The patient fell on her knee and required open reduction and internal fixation of the right patella. Approximately 1 week ago, the knee began swelling and draining and became erythematous. The drainage was clear in nature. The patient underwent surgery as mentioned above. Thus far, Gram stain shows no organisms and cultures are pending. PAST MEDICAL HISTORY/REVIEW OF SYSTEMS: Eyes and Ears: She has no problems seeing or hearing. Neck: No stiffness. Cardiac: No chest pain or palpitations. Gastrointestinal: No nausea, vomiting, or diarrhea. Respiratory: No cough or shortness of breath. Genitourinary: No dysuria or flank pain. Gastrointestinal: No nausea, vomiting or diarrhea. Bones/Joints/Muscles: See present illness. Neurologic: No seizures. No loss of motor or sensory function. OBSTETRICAL/GYNECOLOGICAL HISTORY: She is a 3, para 2, abortus 1. PREVIOUS HOSPITALIZATIONS AND OPERATIONS: The patient has had 2 labor and deliveries and 1 miscarriage. She has also had a hysterectomy and a bladder tack. MEDICAL DISEASES: Positive for obesity and hypertension, gastroesophageal reflux disease. INFECTIOUS DISEASE HISTORY: Negative for pneumonia and UTI. FAMILY HISTORY: Positive for diabetes mellitus, hypertension, and cancer. [place]IAL HISTORY[place] . She lives with her family. She does not have any pets at home. ALLERGIES: Her chart says she has no known drug allergies. MEDICATIONS: Her medications taken at home include the following: Aspirin, Celebrex, vitamin B12, Colace, doxycycline, Prilosec, and oxycodone. HABITS: The patient does not smoke cigarettes, drink alcoholic beverages, or abuse drugs. PHYSICAL EXAMINATION: Vital Signs: Temperature is 98.3 degrees, pulse 74, respirations 16, blood pressure 150/54. The patient is 5 feet 3 inches tall, weighs 208 pounds. General: This is an obese elderly female. She is in no acute distress. Head/Eyes/Ears/Nose/Throat: She can hear my spoken words and see near objects. There is no drainage coming from the nose or ears. She does not have any white patches in her mouth. Neck: No meningismus. Lungs: Clear to auscultation. Cardiovascular: Regular heart rate. Abdomen: Soft, nontender. Extremities: The patient's right knee has dressings on it. The dressings are intact. The knee is swollen. I did not see any active drainage. Neurologic: The patient is awake. She can move her extremities. There is no tremor. Her sensation is intact to touch. Her memory as regarding her medical history was intact. Thank you for the consultation. cc: MD Corey Abdi MD
[2019-06-14] MEDS: CUBICIN 600 MG in NS 100 ML IV SCH (14:13)
[2019-06-14] MEDS: LR 1,000 ML IV SCH (18:15)
[2019-06-15] MEDS: MAXIPIME 2 GM in NS 100 ML IV SCH ×2 (00:20→12:16)
[2019-06-15] MEDS: TYLENOL PO SCH ×3 (00:20→18:57)
[2019-06-15] MEDS: OXY IR PO PRN ×3 (00:20→21:51)
[2019-06-15] MEDS: LR 1,000 ML IV SCH ×2 (02:06→08:43)
[2019-06-15 07:32] LABS: AGAP 10; ALB/GLOB RATIO 0.9; ALKALINE PHOSPHATASE 74 U/L (32-104); BUN 13 mg/dL (8-22); CALCIUM 8.3 mg/dL (8.8-10.2); CHLORIDE 102 mmol/L (98-107); COSMO 287; CREATININE 0.7 mg/dL (0.5-0.9); ESTIMATED GFR > 60; GLUCOSE 99 mg/dL (70-104); GOT 13 U/L (10-30); GPT 12 U/L (10-36); POTASSIUM 3.6 mmol/L (3.5-5.1); SODIUM 144 mmol/L (136-145); TCO2 32 mmol/L (25-35); TOTAL BILIRUBIN 0.15 mg/dL (0.20-1.00); TOTAL PROTEIN 6.2 g/dL (6.3-8.3)
[2019-06-15 07:43] LABS: BASO# 0.03 X1000 (0.0-0.2); BASO% 0.6 % (0.0-0.8); EOS# 0.08 X1000 (0.0-0.7); EOS% 1.6 % (0.0-10.0); HEMATOCRIT 36.5 % (37.0-47.0); HEMOGLOBIN 10.4 g/dL (12.0-16.0); LYMPH# 1.28 X1000 (1.2-3.4); LYMPH% 25.8 % (20.5-51.1); MCH 29.3 PG (27-31); MCHC 28.5 g/dL (33-37); MCV 102.8 FL (81-99); MONO# 0.76 X1000 (0.11-0.59); MONO% 15.3 % (1.7-9.3); NEUT# 2.82 X1000 (1.4-6.5); NEUT% 56.7 % (42.2-75.2); PLT 257 X1000 (130-400); RBC 3.55 XMIL (4.2-5.4); RDW 13.1 % (11.5-14.5); WBC 4.97 X1000 (4.8-10.8)
[2019-06-15 08:06] LABS: HEMOGLOBIN A1C 5.3 % (4.8-6.0)
[2019-06-15] MEDS: CELEBREX PO SCH ×2 (08:33→21:51)
[2019-06-15] MEDS: VITAMIN B-12 PO SCH (08:34)
[2019-06-15] MEDS: FERROUS SULFATE PO SCH ×2 (08:34→21:51)
[2019-06-15] MEDS: MIRALAX PO SCH (08:34)
[2019-06-15] MEDS: COZAAR PO SCH (08:34)
[2019-06-15] MEDS: PRILOSEC PO SCH (08:34)
[2019-06-15] MEDS: FOLIC ACID PO SCH ×2 (08:34→21:52)
[2019-06-15] MEDS: PERIDEX MT SCH ×2 (08:34→21:51)
[2019-06-15] MEDS: COLACE PO SCH (08:35)
[2019-06-15] MEDS: FLEXERIL PO PRN ×2 (08:40→21:52)
--- NOTE | 2019-06-15 08:52 | ORTHOPAEDICS PROGRESS NOTE ---
DATE: 06/15/2019 SUBJECTIVE: No acute events overnight. Patient has been n.p.o. since midnight for wound check this morning. She states she is doing okay. She is anxious to get home. Pain is controlled. She reports some muscle spasms in her leg. OBJECTIVE: Labs: Hematocrit 37, white count 5. Cultures are pending. Gram stain was negative. Extremities: Examination of the right lower extremity shows incision to be clean, dry, intact. Mild erythema around the incision, but no sign of wound dehiscence. Minimal serous drainage. Knee is locked in extension. Motor is intact to EHL, tibialis anterior, gastrocsoleus complex. Sensation intact to light touch L3-S1. Dorsalis pedis pulse palpable. Thigh and calf soft, compressible. ASSESSMENT: A 69-year-old female with right knee surgical site infection. Postop day 2 status post debridement and irrigation. PLAN: 1. Patient can be weightbearing as tolerated with the knee locked in extension. Physical therapy consulted for gait training. 2. Appreciate Infectious Disease recommendations. Patient has been switched to cefepime and daptomycin. Plan for PICC line placement today and likely in 6 weeks intravenous antibiotic. Cultures are pending. 3. Appreciate hospitalist recommendations for medical management. 4. Ice the right lower extremity as needed for pain. 5. Disposition: I will plan on holding off on any more surgery at this time as long as the wound continues to heal. We are going to treat the infection with intravenous antibiotics for 6 weeks and then reassess. If she is pain-free and she appears to have healing of her fracture site, we will plan on keeping the hardware in for several months and then go back for hardware removal in the future. If she goes on to develop a nonunion, then we will plan on doing the hardware removal and likely partial patellectomy at that time as needed. Once intravenous antibiotics are in place, cultures are final and the patient is stable. Plan on discharging her home with home health, likely tomorrow. I will follow her up in clinic in 1 week for wound check. cc: Corey Cummings MD
[2019-06-15] MEDS: LOVENOX SUBQ SCH (09:25)
[2019-06-15] MEDS ORDERED: NORVASC PO ONE (13:21)
[2019-06-15] MEDS: CUBICIN 600 MG in NS 100 ML IV SCH (13:35)
--- NOTE | 2019-06-15 14:01 | PROGRESS NOTE ---
DATE: 06/15/2019 SUBJECTIVE: When I evaluated this patient, she was sitting at the bedside with her legs elevated, her pain level at that moment was 0/10. Her blood pressure has been elevated. I will add amlodipine to her medications. She is already on losartan, which is her home medication, antibiotics have been modified by Infectious Disease Department. We will continue with the same management for now. Hemoglobin A1c 5.3. I will ask for the anemia workup since the MCV is elevated. I will stop the fluids. OBJECTIVE: Vital Signs: Temperature 98.8 degrees, pulse 84, respiratory rate 18, blood pressure 161/53, oxygen saturation 99 on room air. HEENT: Head normocephalic, no trauma, PERRLA. Neck: Supple, no JVD. No masses. Central trachea. Chest: Clear to auscultation. No wheezing. No rales. Abdomen: Soft, nontender, nondistended. No hepatosplenomegaly. Extremities: Her right knee is covered with a dressing, she does have some bilateral lower extremity swelling, maybe +1, we will continue with antibiotics and monitoring this patient closely. Neurological: The patient is alert. She is oriented x3. No focal deficits. LABORATORY: WBC 4.9, hemoglobin 10.4, hematocrit 36.5, platelets 257,000, sodium 144, potassium 3.6, chloride 102, bicarbonate 32, BUN 13, creatinine 0.7, glucose 99, calcium 8.3, albumin 3. ASSESSMENT AND PLAN: 1. Right knee surgical site infection/infected hardware status post debridement and irrigation of right knee. Postoperative day #2, she seems to be stable, I will stop the IV fluids. No fever, no chills. She is not complaining of pain, her blood pressure seems to be elevated. I will give her a dose of amlodipine to see how she does and I will continue with her home medication, which is losartan, antibiotics per Infectious Disease Department. 2. Hypertension as above. 3. Macrocytic anemia, I will ask for the anemia workup. 4. Gastroesophageal reflux disease. Continue proton pump inhibitors. 5. B12 and folic acid deficiency, continue to replace. cc: Corey Cummings MD
--- NOTE | 2019-06-15 14:38 | INFECTIOUS DISEASE PROGRESS NO ---
DATE: 06/15/2019 PRESENT ILLNESS: The patient has a gram-positive coccal right knee surgical site infection with involvement of the femur also. MEDICATIONS: The patient is on daptomycin as a single agent. PHYSICAL EXAMINATION: Vital Signs: Temperature is 98.8 degrees, pulse 84, respirations 18, blood pressure 161/53. General: This is an obese, elderly female. She is in no acute distress. Head/eyes/ears/nose/throat: She can hear my spoken words and see near objects. I did not see any white patches on her tongue. Neck: No pain with movement of the neck. Lungs: Clear to auscultation. Cardiovascular: Regular heart rate. Abdomen: Soft and nontender. Extremities: The patient's right knee has a dressing on it. The dressing is intact. The knee is swollen. I did not see any erythema or purulent drainage. Neurologic: The patient is alert she can move her extremities. There is no tremor. LAB AND X-RAY: There is no new radiographic study. CBC today shows a white count of 4970, hemoglobin 10.4, and platelet count 257,000. Creatinine is 0.7, GFR is greater than 60. Liver function studies are normal. Urine cultures negative. A culture from the right knee is growing a gram-positive coccus which has not yet been identified. ASSESSMENT AND PLAN: For now I plan to continue the patient's daptomycin pending the identification of the patient's gram-positive coccal organism. The patient will require 6 to 8 weeks of treatment with the antibiotic for the gram-positive coccus isolated from the knee. Following the prolonged IV treatment, the patient will be put on an low-dose oral antibiotic on a chronic basis to try to prevent any flare ups of infection that may be in a dormant state. Since the patient's organism is gram positive coccus the patient will require IV antimicrobial therapy. Therefore, I have put in a consult for a PICC to be placed today. COMORBIDITIES: The patient is elderly. She is obese. She has gastroesophageal reflux disease. cc: MD Corey Abdi MD
[2019-06-15 15:06] LABS: INR 1.06
[2019-06-16] MEDS: COLACE PO SCH ×2 (01:24→11:03)
[2019-06-16] MEDS: TYLENOL PO SCH ×2 (01:25→11:01)
[2019-06-16] MEDS: LOVENOX SUBQ SCH (06:28)
[2019-06-16 07:09] LABS: HEMOGLOBIN 10.8 g/dL (12.0-16.0)
[2019-06-16 07:17] LABS: AGAP 10; BUN 10 mg/dL (8-22); CALCIUM 8.7 mg/dL (8.8-10.2); CHLORIDE 102 mmol/L (98-107); COSMO 286; CREATININE 0.5 mg/dL (0.5-0.9); ESTIMATED GFR > 60; GLUCOSE 101 mg/dL (70-104); POTASSIUM 3.5 mmol/L (3.5-5.1); SODIUM 144 mmol/L (136-145); TCO2 32 mmol/L (25-35)
[2019-06-16] MEDS ORDERED: NS 250 ML ONE (08:23)
--- NOTE | 2019-06-16 08:32 | ORTHOPAEDICS PROGRESS NOTE ---
DATE: 06/16/2019 SUBJECTIVE: No acute events overnight. Patient is doing well. She ambulated around the hallways with physical therapy yesterday. Her pain is 0/10. She is tolerating a diet. She is urinating voluntarily. OBJECTIVE: Hematocrit 36. Cultures are growing Staphylococcus pseudintermedius, sensitive to vancomycin, clindamycin, gentamicin, levofloxacin, oxacillin. Extremity examination of the right lower extremity showed the surgical incision to be clean and intact. Minimal serous drainage around the incision site. The erythema is improving. There is no sign of wound dehiscence. No fluctuance around the area. Thigh and calf are soft and compressible. Neurovascularly intact. ASSESSMENT: A 69-year-old female status post debridement and irrigation of right knee surgical site infection, postoperative day 3. PLAN: 1. Patient to continue weightbearing as tolerated with her knee brace locked in extension on the right lower extremity. PT to mobilize. 2. I appreciate infectious disease recommendations. The patient is currently on daptomycin. Awaiting final antibiotic recommendations per Dr. Muniz. Patient will have a PICC line placed today prior to discharge and have all of her home health antibiotics set up prior to going home. 3. I appreciate hospitalist recommendations for medical comanagement. 4. Ice the right lower extremity as needed for pain. 5. Disposition. Plan on discharging the patient home today with home health for antibiotic administration as soon as her PICC line is in place and ID recommendations are finalized. I will see her back in clinic in about 5 days for a wound check. cc: Corey Cummings MD
[2019-06-16] MEDS ORDERED: NORVASC PO SCH (09:30)
[2019-06-16] MEDS ORDERED: KEFZOL 2 GM/D5W 2 GM/50 ML IVPB IV SCH (10:45)
[2019-06-16] MEDS: OXY IR PO PRN (11:01)
[2019-06-16] MEDS: PRILOSEC PO SCH (11:01)
[2019-06-16] MEDS: FOLIC ACID PO SCH (11:02)
[2019-06-16] MEDS: FERROUS SULFATE PO SCH (11:02)
[2019-06-16] MEDS: MIRALAX PO SCH (11:02)
[2019-06-16] MEDS: VITAMIN B-12 PO SCH (11:02)
[2019-06-16] MEDS: PERIDEX MT SCH (11:02)
[2019-06-16] MEDS: COZAAR PO SCH (11:02)
[2019-06-16] MEDS: CELEBREX PO SCH (11:09)
--- NOTE | 2019-06-16 11:37 | INFECTIOUS DISEASE PROGRESS NO ---
DATE: 06/16/2019 The patient grew Staph pseudo intermedius from her knee. It is susceptible in-vitro to oxacillin. I have discontinued daptomycin and I am going to be sending the patient home on cefazolin 2 g IV every 8 hours for 6 weeks. Some of the side effects of the antibiotic, including rash and diarrhea, have been explained to the patient who agrees with treatment. Following the 6 week course of IV cefazolin, I am going to put the patient on Keflex 500 mg p.o. every 12 hours. The patient told me today that Dr. Acosta is considering removing the patient's metal from her leg. If that does happen, then the patient will need the 6 weeks of IV antibiotic, but no further antibiotics by mouth. I am requesting that the patient come to my office in 3 weeks and then at 6 weeks and at the 6-week time the IV antibiotics will be stopped and the PICC will be removed. cc: MD Corey Abdi MD
[2019-06-16 12:26] VITALS: BP 154/43
--- NOTE | 2019-06-16 13:52 | PROGRESS NOTE ---
DATE: 06/16/2019 SUBJECTIVE: This patient seems to be feeling better. Vital signs are stable. Just a little bit hypertensive. Knee culture showed Staphylococcus pseudintermedius. The patient has been evaluated by the infectious disease department which is considering sending this patient home with cefazolin 2 g IV every 8 hours for 6 weeks and then, after those 6 weeks, he is concealing p.o. treatment. He will follow up this patient in 3 weeks and at the end of the IV treatment, 6 weeks. OBJECTIVE: Vital Signs: Temperature 97.5 degrees, pulse 88, respiratory rate 16, blood pressure 154/43, oxygen saturation 95% on room air. HEENT: Head normocephalic. No trauma. PERRLA. Neck: Supple. No JVD. No masses. Central trachea. Chest: Clear to auscultation. No wheezing. No rales. Abdomen: Soft, nontender, nondistended. No hepatosplenomegaly. Extremities: Her right knee is covered with a dressing. She does have some bilateral lower extremity swelling, maybe 1+. We will continue with antibiotics per infectious disease department. A PICC line has been placed. Neurological Examination: The patient is alert. She is oriented x3. No focal deficits. Laboratory: Hemoglobin 10.8, hematocrit 36. Sodium 144, potassium 3.5, chloride 102, bicarbonate 32, BUN 10, creatinine 0.5, glucose 101, calcium 8.7. ASSESSMENT AND PLAN: 1. Right knee surgical site infection/infected hardware, status post debridement and irrigation of the right knee. Postoperative day #3. Seems to be stable. Microbiology showed Staphylococcus pseudintermedius. Infectious disease department is planning to treat this patient for 6 weeks of intravenous antibiotics with cefazolin and then oral treatment afterwards. 2. Hypertension. I added a low dose of amlodipine. We will continue to monitor. 3. Macrocytic anemia. Continue with the same management. 4. Gastroesophageal reflux disease. Continue with proton pump inhibitors. 5. B12 and folic acid deficiency. Continue to replace. cc: Corey Cummings MD
[2019-06-16] MEDS ORDERED: FLU VACCINE IM ONE (14:55)
--- NOTE | 2019-06-16 22:04 | DISCHARGE SUMMARY ---
ADMISSION DATE: 06/13/2019 DISCHARGE DATE: 06/16/2019 ADMISSION DIAGNOSIS: Right knee surgical site infection. DISCHARGE DIAGNOSIS: Right knee surgical site infection. PROCEDURES: Debridement and irrigation skin, muscle, and bone of the right knee infected patellar hardware done on 06/13/2019. CONSULTATIONS: 1. Dr. King Muniz with Infectious Disease. 2. Hospitalist service. BRIEF HOSPITAL COURSE: Ms. Cifuentes is a 69-year-old lady who has been followed for left proximal humerus fracture and right patella fracture. She underwent initial fixation and reverse shoulder arthroplasty of these injuries on 05/02/2019. She is doing well with her shoulder, however, developed wound dehiscence over her right knee. Given these findings, the decision was made to admit the patient to the hospital and take her back for debridement and irrigation and placement on IV antibiotics. The risks, benefits, and alternative therapies were discussed patient regarding surgery. All questions were answered. Informed consent was obtained. The patient underwent the above procedure and was admitted on 06/13/2019. She tolerated the procedure well. Following surgery, she was transferred to the floor for postoperative care. Cultures were taken in the operating room prior to starting IV antibiotics. She was then initially started on daptomycin and cefepime. Once cultures speciated a Staphylococcus pseudo intermedius, she was transitioned to IV Ancef q.8 hours. On postoperative day 3, the patient was tolerating her diet. Her pain was well controlled on p.o. pain medications. She was ready to be discharged home. Her wound looked stable at that time. Infectious Disease set up a PICC line and home antibiotics for her. The decision was thus made to discharge the patient home on 06/16/2019. DISPOSITION: Discharged home. CONDITION: Stable. ACTIVITY: Weightbearing as tolerated on right lower extremity and control motion brace locked in extension. MEDICATIONS: Home medications were restarted. She had addition of IV Ancef q.8 hours for infection. FOLLOW-UP: 1. Patient is to follow up with me at [facility] in 5 days for wound check. 2. She is to follow up with Dr. King Muniz, Infectious Disease, in 3 weeks for labs. 3. She should follow up with her primary care physician as needed for medical management. FOLLOW-UP INSTRUCTIONS: 1. She is to wash her incision with soap and water. No soaking in a bath. 2. She is to keep her control motion brace on and locked in extension at all times until wound is stable. 3. Home health was set up for management of antibiotic infusion. 4. She should call the ER and return if any acute onset of chest pain, shortness of breath, fever of 100.5 or greater, or drainage from surgical incision. cc: Corey Cummings MD
== END 2019-06-16 15:18 | disposition home health service (06) | DRG 486 ==
LOC: OR 14:30 → 4N 20:43
PROVIDERS: ADMIT Internal Medicine; ATTEND Orthopaedic Surgery Sports Medicine

== ENCOUNTER 2019-07-06 12:16 | Inpatient (IN) ==
[~2019-07-06 12:16] MED LIST changes: +DIPRIVAN 1% ONE; -LOVENOX SUBQ SCH; +XYLOCAINE-MPF 2% ONE
[2019-07-06] MEDS ORDERED: LR 1,000 ML ONE (12:29)
[2019-07-06] MEDS ORDERED: KEFZOL 1 GM/D5W 2 GM/100 ML IVPB ONE (12:29)
[2019-07-06] MEDS ORDERED: FENTANYL ONE (13:40)
[2019-07-06] MEDS ORDERED: DECADRON ONE (14:21)
[2019-07-06] MEDS ORDERED: ZOFRAN ONE (14:21)
[2019-07-06] MEDS ORDERED: VANCOMYCIN ONE (14:55)
[2019-07-06] MEDS ORDERED: DILAUDID ONE ×2 (15:35→16:06)
[2019-07-06] MEDS ORDERED: ZOFRAN IV PRN (15:50)
[2019-07-06] MEDS ORDERED: HALDOL IV PRN (15:53)
[2019-07-06] MEDS ORDERED: MILK OF MAGNESIA PO PRN (15:53)
[2019-07-06] MEDS: DILAUDID ONE ×2 (15:59→16:04)
[2019-07-06] MEDS: TYLENOL PO SCH (16:18)
[2019-07-06] MEDS ORDERED: NS 1,000 ML ONE (16:31)
[2019-07-06] MEDS: NS 1,000 ML IV SCH (18:22)
[2019-07-06] MEDS: OXY IR PO PRN (18:43)
[2019-07-06 20:18] LABS: URINE SOURCE CLEAN CATCH
[2019-07-06 20:21] LABS: BILIRUBIN URINE NEGATIVE (NEGATIVE); BLOOD URINE NEGATIVE (NEGATIVE); COLOR YELLOW; GLUCOSE URINE NEGATIVE (NEGATIVE); KETONE URINE NEGATIVE (NEGATIVE); LEUKOCYTES URINE LARGE (NEGATIVE); NITRITE URINE NEGATIVE (NEGATIVE); PH URINE 6.5; PROTEIN URINE TRACE mg/dL (NEGATIVE); SP GRAVITY URINE 1.015; TURBIDITY URINE CLEAR (CLEAR); UROBILINOGEN URINE NORMAL (NORMAL)
[2019-07-06 20:22] LABS: UR EPITHELIAL CELLS <10 /HPF (<10); URINE BACTERIA NEGATIVE /HPF; URINE RBC <10 /HPF (<10)
[2019-07-06] MEDS: KEFZOL 1 GM/D5W 1 GM/50 ML IVPB IV SCH (21:48)
[2019-07-06] MEDS: PERIDEX MT SCH (21:49)
[2019-07-06] MEDS: COLACE PO SCH ×2 (21:49)
[2019-07-06] MEDS: FOLIC ACID PO SCH (21:50)
[2019-07-06] MEDS: FERROUS SULFATE PO SCH (21:50)
[2019-07-06] MEDS: MORPHINE IV PRN (22:09)
[2019-07-07] MEDS: TYLENOL PO SCH ×3 (00:50→15:53)
[2019-07-07] MEDS: OXY IR PO PRN ×6 (00:51→21:07)
[2019-07-07] MEDS: KEFZOL 1 GM/D5W 1 GM/50 ML IVPB IV SCH (05:48)
[2019-07-07] MEDS: LOVENOX SUBQ SCH (05:54)
[2019-07-07 06:55] LABS: HEMATOCRIT 37.7 % (37.0-47.0); HEMOGLOBIN 10.8 g/dL (12.0-16.0)
[2019-07-07] MEDS: MORPHINE IV PRN ×2 (07:04→11:36)
[2019-07-07] MEDS: FERROUS SULFATE PO SCH ×3 (08:32→21:09)
[2019-07-07] MEDS: PRILOSEC PO SCH (08:32)
[2019-07-07] MEDS: ASPIRIN PO SCH (08:32)
[2019-07-07] MEDS: FOLIC ACID PO SCH ×2 (08:32→21:09)
[2019-07-07] MEDS: COLACE PO SCH ×3 (08:33→21:18)
[2019-07-07] MEDS: PERIDEX MT SCH ×2 (08:33→21:08)
[2019-07-07] MEDS: VITAMIN B-12 PO SCH (08:33)
[2019-07-07] MEDS: COZAAR PO SCH (08:39)
[2019-07-07 08:51] LABS: AGAP 10; ALBUMIN 3.3 g/dL (3.5-5.0); BUN 9 mg/dL (8-22); CALCIUM 9.1 mg/dL (8.8-10.2); CHLORIDE 98 mmol/L (98-107); COSMO 275; CREATININE 0.5 mg/dL (0.5-0.9); ESTIMATED GFR > 60; GLUCOSE 136 mg/dL (70-104); POTASSIUM 4.3 mmol/L (3.5-5.1); SODIUM 137 mmol/L (136-145); TCO2 29 mmol/L (25-35)
--- NOTE | 2019-07-07 14:03 | OPERATIVE NOTE ---
PROCEDURE DATE: 07/06/2019 PREOPERATIVE DIAGNOSES: 1. Right knee infected hardware. 2. Right knee wound dehiscence with exposed bone. 3. 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 POSTOPERATIVE DIAGNOSES: 1. Right knee infected hardware. 2. Right knee wound dehiscence with exposed bone. 3. 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 PROCEDURES: 1. Debridement and irrigation of skin, subcutaneous tissue, muscle and bone. CPT code 78104. 2. Hardware removal from the right patella deep, CPT code 87212. 3. Application of dermal skin substitute graft to the right knee with surface area less than 100 square cm. CPT code 02417. 4. Application of negative pressure wound VAC. SURGEON: Florentin Acosta MD SUPERINTENDENT CIRCUS: Elizabeth Moran, whose help was necessary for retraction throughout the case. ANESTHESIA: LMA. COMPLICATIONS: None. SPECIMENS: Three sets of cultures were taken from the knee around the superficial patellar retinaculum as well as deep in the knee joint. BLOOD LOSS: 10 mL. DRAINS: 1. One Hemovac drain was placed in the subcutaneous tissue of the right knee. 2. Negative pressure incisional wound VAC was placed after closure of the wound. IMPLANTS: [employer] anti microbial dermal repair scaffold measuring 6 cm x 6 cm. INDICATIONS FOR PROCEDURE: Ms. Cifuentes is a 69-year-old lady who has been followed for right patella fracture. She underwent open reduction internal fixation of her fracture about 9 weeks ago. She subsequently developed postoperative surgical site infection, and underwent debridement about 3 weeks ago with cultures taken at that time growing Staph. She has been on IV antibiotics for the last 3 weeks. She subsequently dehisced her wound again, and had exposed hardware. Given these findings, the decision was made to proceed back to the operating room for hardware removal, possible patellectomy, and attempted wound closure versus placement of Integra, or other biologic dermal matrix to assist with wound closure. Risks, benefits, alternative therapies were discussed with the patient and family regarding surgery. Risks of surgery include, but not limited to risks of bleeding, infection, damage to nerves and vessels around the area and failure of the wound to heal, continued pain following surgery, and need for revision surgery. There is also risk of anesthesia including blood clot, stroke, heart attack, and even . The main goal of this procedure is to remove remaining hardware and infection burden from the knee as well as to attempt to partially close the wound, and place dural scaffold to encourage granulation tissue in a healthy wound bed for possible skin graft in the future. We will not be able to repair the extensor mechanism with any type of braided suture given the infection in the knee. She is aware that we may need to go back for a future surgery once the wound is healed to address her extensor mechanism if necessary. All questions were answered. Informed consent was obtained. PROCEDURE IN DETAIL: Ms. Cifuentes was identified by wrist band and greeted in preop holding area on 07/06/2019. Her right lower extremity which was the operative site was marked with indelible ink per [facility] protocol. Following this, the patient was transferred back to the operating room for surgery. Upon entering the OR, she was transferred in supine position on the Skytron table. All bony prominences were well padded. LMA was then placed. At this time, right lower extremity was prepped and draped in routine sterile fashion. Formal time-out was performed confirming correct patient, procedure, operative site, operative side, and administration of perioperative antibiotics. Everyone was in agreement. Patient received 2 g Ancef prior to incision. Esmarch was used to exsanguinate the right lower extremity and tourniquet was elevated to 300 mmHg. Total tourniquet time was about 105 minutes. Once this was done, a 10 blade knife was used to make a midline longitudinal incision along her prior incision site. Knife was used to debride the skin edges back to healthy bleeding tissue around the dehisced area of the wound. Once this was done, a knife was then used to create full-thickness skin flaps elevating subcutaneous fat off of the patellar retinaculum both medially and laterally in hopes of allowing some tissue rotation for closure of the wound. Once this was done, we then turned our attention to removal of hardware. Wire cutters were used to cut the tension band cable which was then pulled out. A [employer] small frag cannulated screwdriver was then used to remove the two 4-0 cannulated screws. At this time, we then assessed the fracture site, which was found to be significantly gapped with no signs of healing. Patient had gross movement at the fracture site. She also appeared to have some erosion of the bone around the superior pole of the patella. Given these findings, the decision was made to perform a superior pole patellectomy. A new 10 blade knife was used to shell out the superior pole of the patella taking care not to disturb the extensor mechanism. Once this bone was shelled out and removed, we then proceeded with irrigation of the wound with 1 L of Bausch anti microbial wash. We mechanically debrided the wound while washing with the Bausch solution. We washed both superficially as well as deep into the joint. We then left the wound soak with the Bausch solution for about 4 minutes. Once this was done, we then copiously irrigated the wound with 3 L of normal saline. At this time, the leg was then re-prepped with ChloraPrep. All gloves were changed, and a new down sheet was placed. We then began to assess our defect, and then determined how to repair and close the wound. The patient's patellar retinaculum was found to be intact both medially and laterally on each side of the patella. We also used a #1 PDS suture to modified Krackow suture to repair the quad tendon back down to the inferior pole of the patella. Once this was done, knife was then used to elevate VMO off the underlying capsule. Our VMO tendon and fascia was then advanced anteriorly and laterally over our patella defect to provide an extra layer of soft tissue between our wound, and the fracture as well as to help augment our extensor mechanism. The VMO advancement was repaired with #1 PDS suture. Once this was done, an O V-Loc barbed absorbable suture was then run along the edge of our VMO advancement as well as our repaired quadriceps tendon and patellar retinaculum. Following this, the wound was then copiously irrigated with normal saline. We then proceeded with closure of our wound. I was able to manipulate the tissue proximally and distally in order to obtain a tension-free closure of the wound. A 2-0 PDS suture was then used for subcutaneous tissue closure both proximally and distally. At this time, we then opened a prime matrix Ag dermal matrix graft scaffold, and cut and fabricated this to fit inside of our defect. We then sewed this into the defect underlying the wound at the area of prior dehiscence in hopes of providing good collagen scaffold for vascularization and ingrowth of new tissue. This was then sutured in place. At this time, we then placed a Hemovac drain going out the anterior lateral aspect of the thigh. 1 g of vancomycin powder was then spread throughout the subcutaneous tissue. We then finished closing subcutaneous tissue with 2-0 Vicryl sutures. The 3-0 nylon sutures were then used in Allgower Denati fashion to close the wound. We were able to have a tension-free closure at all points of the wound. Once this was done, a Xeroform followed by an incisional wound VAC was placed over the incision site. We then placed a 4 x 4 around the drain site. Tourniquet was then released. Total tourniquet time was 105 minutes. At this time, the right lower extremity was then wrapped with large John from the foot up to the thigh. She was then placed under control motion brace and locked in full extension. At this time the patient was then extubated, transferred to her hospital stretcher, and taken to recovery room in stable condition. There were no acute complications done during the procedure. All sponge and sharp counts were correct at conclusion of procedure. [facility] HOSPITALCamilo
[2019-07-07] MEDS: NS 1,000 ML IV SCH ×2 (14:09→21:07)
[2019-07-07] MEDS ORDERED: FLEXERIL PO PRN (15:50)
--- NOTE | 2019-07-07 16:20 | ORTHOPAEDICS PROGRESS NOTE ---
DATE: 07/07/2019 SUBJECTIVE: No acute events overnight. Patient was having some pain postoperatively, however, it has since been controlled on narcotic pain medicine. She has tolerated a liquid diet, and is ready for some real food. She has been urinating voluntarily. She has no other complaints. OBJECTIVE: Afebrile. Vital Signs stable. Extremities: Examination of right lower extremity shows surgical dressing and John wrap to be clean, dry, intact. Control motion brace was in placed, and locked in full extension. Calf and thigh are soft and compressible. Wound VAC is in place with good seal. The Hemovac drain is in place with minimal output. Motor intact. EHL, tibialis anterior, gastrocsoleus complex. Sensation intact to light touch at L3-S1. Dorsalis pedis pulse palpable. Cultures are no growth to date. Gram stain is negative. LABORATORY: Hematocrit is 38, white count 10.8, and albumin is 3.3. ASSESSMENT: A 69-year-old female status post hardware removal, right knee debridement and irrigation of the wound, application of dermal matrix graft, and closure of wound. Postop day 1. PLAN: 1. Patient is to be touchdown weightbearing on the right lower extremity. Physical Therapy to help mobilize. I want her to have a minimal movement and use of this leg for the next 10 to 14 days as the wound heals. She can use either leg for transfers. 2. Aspirin 325 mg daily for DVT prophylaxis. 3. Infectious Disease consulted. The patient has seen Dr. Muniz for this, and has been on IV Ancef for cultures that resulted positive from her initial washout back on 06/13 which grew Staph intermedius. She is supposed to have a follow-up appointment with Dr. Muniz today in clinic, however, is now in the hospital. We will see if he can come see her here in the hospital. She has been tolerating the Ancef well, and not had any issues with the PICC line. 4. Ice and elevate right lower extremity as needed for pain. 5. Discontinue the Hemovac drain. 6. Disposition: Plan to discharge home later this afternoon or tomorrow pending Infectious Disease recommendations and pain control. We will send her home with her home wound VAC, which she came to the hospital with. I will see her back in clinic in about 5 days for wound check.
[2019-07-07] MEDS: KEFZOL 2 GM/D5W 2 GM/50 ML IVPB IV SCH (18:49)
[2019-07-08] MEDS: OXY IR PO PRN ×4 (00:15→14:34)
[2019-07-08] MEDS: TYLENOL PO SCH ×3 (00:17→09:16)
[2019-07-08] MEDS: KEFZOL 2 GM/D5W 2 GM/50 ML IVPB IV SCH ×2 (03:22→13:05)
--- NOTE | 2019-07-08 03:40 | INFECTIOUS DISEASE PROGRESS NO ---
DATE: 07/07/2019 CONCLUSION: The patient had an infected right knee hardware and last night underwent removal of the hardware by Dr. Acosta. The culture from the patient's knee previously grew Staphylococcus pseudo intermedius. MEDICATIONS: The patient is on Ancef. PHYSICAL EXAMINATION: Vital Signs: Temperature is 97.4 degrees, pulse 84, respirations 18, blood pressure 146/66. General: This is a somewhat ill-appearing, elderly female. She is in no acute distress. Head, eyes, ears, nose, and throat: She can hear my spoken words and see near objects. She does not have any white coating of her tongue. Neck: No pain with movement. Lungs: Clear to auscultation. Cardiovascular: Regular heart rate. Abdomen: Soft and nontender. Extremities: The patient has the VAC on the patient's right knee. Neurologic: The patient is awake, alert. She can move her arms and left leg. I did not ask her to move her right leg because she just had surgery on it. She could move her toes, however. There is no tremor. Integument: No rash. LAB AND X-RAY STUDIES: Cultures thus far from the knee are negative. The patient's urinalysis showed white cells but no bacteria. Urine culture is negative. ASSESSMENT AND PLAN: The patient had infected right knee hardware. This has been removed. I plan to continue Ancef and increase the dose to 2 g IV every 8 hours. COMORBIDITIES: The patient is elderly, she is obese. cc: King Muniz MD
[2019-07-08] MEDS: LOVENOX SUBQ SCH (05:49)
[2019-07-08 06:59] LABS: HEMATOCRIT 35.2 % (37.0-47.0); HEMOGLOBIN 10.2 g/dL (12.0-16.0)
[2019-07-08] MEDS: ASPIRIN PO SCH (09:16)
[2019-07-08] MEDS: FERROUS SULFATE PO SCH ×2 (09:16→09:21)
[2019-07-08] MEDS: COZAAR PO SCH (09:16)
[2019-07-08] MEDS: PERIDEX MT SCH (09:16)
[2019-07-08] MEDS: VITAMIN B-12 PO SCH (09:17)
[2019-07-08] MEDS: COLACE PO SCH (09:18)
[2019-07-08] MEDS: FOLIC ACID PO SCH (09:18)
[2019-07-08] MEDS: PRILOSEC PO SCH (09:18)
[2019-07-08 11:53] VITALS: BP 129/60
--- NOTE | 2019-07-08 21:06 | INFECTIOUS DISEASE PROGRESS NO ---
DATE: 07/08/2019 PRESENT ILLNESS: Ms. Cifuentes has an infected right knee and has had removal of the hardware. MEDICATIONS: She is receiving Ancef 2 g IV every 8 hours. OBJECTIVE: Vital Signs: Temperature is 98.5 degrees, pulse rate 95, respiratory rate 20, blood pressure 128/70, O2 saturation is 94% on room air. General: This is an elderly, obese, somewhat ill-appearing female. She is sitting up in the chair currently in no acute distress. HEENT: Atraumatic, normocephalic. Oral mucous membranes are pink and moist. Conjunctivae are pink. Neck: Supple. Trachea is midline. Cardiovascular: Heart rate is regular. S1, S2 noted. Respiratory: Lung sounds are clear to auscultation bilaterally. No work of breathing is noted. Abdomen: Soft, obese and nontender. Bowel sounds are active. Integumentary: Skin is warm and dry. There is a bulky John wrapped with an immobilizer and a wound VAC as well as a Hemovac drain in place to that right lower extremity. Neurologic: She is awake, alert, oriented, and able to move around with assistance and obvious limitations to the right lower extremity. LABORATORY AND X-RAY: Today her hemoglobin is 10.2. Yesterday her creatinine was 0.5 with a GFR greater than 60. So far, the right knee gram stain shows no bacteria with no growth on the culture, which is preliminary. There is also a urine culture, which showed no growth. No imaging reports today. ASSESSMENT AND PLAN: Ms. Cifuentes is hoping to go home today after having the hardware for her right knee removed. Previously at home, she was receiving Ancef 2 g IV every 8 hours. We will continue that at home. She does have some medication available at home, which she can continue. I have spoken with [facility] [employer], and they have been made aware that we will continue the antibiotics for 3 weeks and then see her back in the office. At that time, we will decide whether she needs continued treatment or if we can stop. Since the hardware has been removed, she should not need any low-dose, long-term prevention, but we will further investigate this on her follow up. These plans have been discussed with and recommended by Dr. Muniz. COMORBIDITIES: For Ms. Cifuentes include that she is elderly and obese with gastroesophageal reflux disease. Dictated by BRYSON Crain for King Muniz MD cc: King Muniz MD [facility]
--- NOTE | 2019-07-09 04:09 | ORTHOPAEDICS PROGRESS NOTE ---
DATE: 07/08/2019 SUBJECTIVE: No acute events overnight. Patient is doing well. Her pain is better controlled. She has ambulated with physical therapy. She is ready to go home. OBJECTIVE: Hematocrit 35. Cultures no growth to date. Examination of right lower extremity shows surgical dressing to be clean, dry, intact. KENNY drains in place with minimal output. Incisional wound VAC is in place with no output and good seal. Thigh and calf soft and compressible. Motor intact EHL, tibialis anterior, gastrocsoleus complex. Sensation intact to light touch L3-S1. Dorsalis pedis pulse palpable. ASSESSMENT: A 69-year-old female status post debridement and irrigation, right knee hardware removal and application of dermal matrix for wound closure. Postop day 2. PLAN: 1. Patient can continue to be toe-touch weightbearing right lower extremity. She should remain in a controlled motion brace locked in full extension at all times. 2. The patient is to keep her incisional wound VAC on at all times. 3. Discontinue Hemovac drain. 4. Dr. Coy from Infectious Disease has seen patient and is continuing her IV Ancef q.8 hours 2 g. He will follow up with her as an outpatient. 5. Disposition: Patient will be discharged home this afternoon. I will plan on seeing her back in clinic on Thursday for wound check.
--- NOTE | 2019-07-09 14:36 | DISCHARGE SUMMARY ---
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 PROCEDURES: Debridement and irrigation of the right knee skin, muscle and bone with hardware removal from the right patella as well as superior pole patellectomy, application of dermal wound matrix and closure of complicated anterior knee wound done on 07/06/2019. CONSULTATIONS: Dr. King Muniz with Infectious Disease. BRIEF HOSPITAL COURSE: Ms Cifuentes is a 69-year-old lady who has recently undergone a right open reduction and internal fixation of a right patella fracture. She subsequently developed infected hardware and was taken back for a washout about 3 weeks ago. She has been on IV antibiotics since that time and developed a repeat wound dehiscence. Given these findings, the decision was made to proceed back to the operating room for hardware removal, debridement of wound and attempted closure. The patient underwent surgery on July 06 and did well with this. She was transferred to the floor after surgery. She had significant pain postoperatively on day of surgery. However, it has since improved and controlled. She has worked with physical therapy and was ambulated and touchdown weightbearing on this leg. Dr. Muniz with Infectious Disease has been following her with her IV antibiotics. Previous cultures grew Staph pseudointermedius and she has been on Ancef for this. We will continue the Ancef per Infectious Disease recommendations. On postop day 2, the patient was tolerating a diet. Her pain was well controlled on p.o. pain medication. She was ready to go home. Patient was thus discharged home on 07/08/2019. DISPOSITION: Discharged home. CONDITION: Stable. ACTIVITY: Patient is to be toe-touch weightbearing to the right lower extremity. She should keep her leg locked in extension at all times in the knee brace. DISCHARGE INSTRUCTIONS: 1. The patient is to continue to take her aspirin for DVT prophylaxis as instructed. 2. The patient should take her IV Ancef 3 times daily per instructions with Infectious Disease. She will follow up with Dr. King Muniz in a couple of weeks at her scheduled appointment. 3. The patient is to keep her incisional wound VAC clean, dry, intact until follow-up appointment. I will see her in clinic on Thursday. 4. The patient is to return to the ER with any acute onset chest pain, shortness of breath, fever greater than 101.5 degrees, or drainage from surgical incision.
== END 2019-07-08 15:28 | disposition home health service (06) | DRG 486 ==
LOC: SURHOLD 12:16 → EDSTATUS 13:00 → 4N 16:03
PROVIDERS: ADMIT Orthopaedic Surgery Sports Medicine; ATTEND Orthopaedic Surgery Sports Medicine